=== PATIENT | female | born 1960 | race Two or more races ===

== ENCOUNTER 2023-11-28 18:48 | Emergency (ER) | payer MEDICARE, MEDICAID ==
[~2023-11-28] VITALS: Ht 165.1 cm; Wt 102.1 kg
[2023-11-28 19:02] VITALS: O2SAT 97
[2023-11-28] MEDS: LIDOCAINE 5% PATCH TOP SCH (21:11)
[2023-11-28] MEDS: ACETAMINOPHEN 500MG TABLET PO ONE (21:11)
[2023-11-28] MEDS: CYCLOBENZAPRINE 10MG TABLET PO ONE (21:11)
[2023-11-28] MEDS ORDERED: NAPR-1176 MT (23:00)
[2023-11-28] MEDS ORDERED: CYCL5TAB MT (23:00)
[2023-11-28] MEDS ORDERED: LIDO700A15 TP (23:00)
[2023-11-28 23:34] VITALS: BP 156/78; PULSE 96; RESP 18; TEMP 98.6
== END 2023-11-28 23:35 | disposition home or self-care (01) ==
LOC: ER 18:48
DX: M54.50 Low back pain, unspecified (principal); E11.9 Type 2 diabetes mellitus without complications; Z98.890 Other specified postprocedural states
CPT/HCPCS: 99284